=== PATIENT | female | born 1975 | race Caucasian/White ===

== ENCOUNTER 2021-11-05 03:35 | Emergency (ER) | payer SELFPAY ==
[~2021-11-05] VITALS: Ht 175.3 cm; Wt 87.0 kg
[2021-11-05 03:37] VITALS: BP 125/75
[2021-11-05] MEDS ORDERED: ACETAMINOPHEN 325MG TABLET PO STA (04:36)
[2021-11-05] MEDS ORDERED: SODIUM CHLORIDE 0.9% 1,000 ML IV ONE (04:45)
== END 2021-11-05 06:15 | disposition left against medical advice (07) ==
LOC: ER 03:35
DX: R00.0 Tachycardia, unspecified (principal)
CPT/HCPCS: 99283; J7030